=== PATIENT | male | born 1965 | race Caucasian/White ===

== ENCOUNTER 2022-01-25 07:40 | Outpatient (CLI) | payer OTHER, SELFPAY ==
[2022-01-25 11:18] LABS: Creatinine Urine 173.6 mg/dL
[2022-01-25 11:22] LABS: Microalbumin Creatinine Ratio 20 mg/g (0-30); Microalbumin Urine 4 mg/dL
[2022-01-25 11:33] LABS: Albumin* 4.7 g/dL (3.3-5.0); Chloride* 103 mmol/L (96-114); Sodium* 140 mmol/L (135-149)
[2022-01-25 11:34] LABS: Potassium* 4.6 mmol/L (3.6-5.1)
[2022-01-25 11:36] LABS: Alanine Aminotransferase* 13 U/L (4-50); Alkaline Phosphatase* 63 U/L (40-150); Aspartate Amino Transferase* 20 U/L (12-35); Bilirubin Total* 0.5 mg/dL (0.1-1.5); Blood Urea Nitrogen* 17 mg/dL (7-30); Calcium* 9.8 mg/dL (8.4-10.6); Carbon Dioxide* 28 mmol/L (20-32); Cholesterol* 169 mg/dL (90-199); Creatinine* 0.8 mg/dL (0.5-1.5); Estimated Glomerular Filt Rate 104 ml/min; Glucose* 136 mg/dL (60-115); Total Protein* 7.1 g/dL (6.0-8.3); Triglycerides* 138 mg/dL (40-149)
[2022-01-25 11:37] LABS: HDL Cholesterol* 38 mg/dL (>=40); LDL Cholesterol Calculated 103 mg/dL (<100)
== END 2022-01-25 07:41 | disposition home or self-care (01) ==
PROVIDERS: PCP Family Medicine; Visit Provider Family Medicine
DX: E11.9 Type 2 diabetes mellitus without complications (principal); E78.5 Hyperlipidemia, unspecified; E78.1 Pure hyperglyceridemia
CPT/HCPCS: 80053; 80061; 82043; 82570

== ENCOUNTER 2022-04-23 07:30 | Outpatient (CLI) | payer OTHER, SELFPAY ==
[2022-04-23 10:14] LABS: Albumin* 4.5 g/dL (3.3-5.0); Chloride* 102 mmol/L (96-114)
[2022-04-23 10:15] LABS: Potassium* 4.3 mmol/L (3.6-5.1); Sodium* 141 mmol/L (135-149)
[2022-04-23 10:17] LABS: Alkaline Phosphatase* 54 U/L (40-150); Aspartate Amino Transferase* 21 U/L (12-35); Bilirubin Total* 0.7 mg/dL (0.1-1.5); Blood Urea Nitrogen* 23 mg/dL (7-30); Carbon Dioxide* 30 mmol/L (20-32); Cholesterol* 130 mg/dL (90-199); Creatinine* 0.8 mg/dL (0.5-1.5); Estimated Glomerular Filt Rate 104 ml/min; Total Protein* 7.2 g/dL (6.0-8.3)
[2022-04-23 10:18] LABS: Alanine Aminotransferase* 15 U/L (4-50); Calcium* 9.8 mg/dL (8.4-10.6); Glucose* 136 mg/dL (60-115); HDL Cholesterol* 34 mg/dL (>=40); LDL Cholesterol Calculated 74 mg/dL (<100); Triglycerides* 111 mg/dL (40-149)
== END 2022-04-23 07:31 | disposition home or self-care (01) ==
LOC: NFLDREF 07:31
PROVIDERS: PCP Family Medicine; Visit Provider Family Medicine
DX: E11.9 Type 2 diabetes mellitus without complications (principal); E78.5 Hyperlipidemia, unspecified; I10 Essential (primary) hypertension
CPT/HCPCS: 80053; 80061

== ENCOUNTER 2023-06-06 07:52 | Outpatient (CLI) | payer OTHER, SELFPAY ==
--- OUTSIDE RECORDS SUMMARY | 2023-06-06 07:55 | XMS_ITS | Clinical Summary ---
Author Name Unknown Organization [facility] Address [place], [place] [address] Care Team Providers Care Medical Associate Name Role Phone German Love MD Primary Care Provider Allergies No known active allergies Medications Medication Sig Dispensed Refills Start Date End Date Status PROTONIX 40 MG TAB take 1 tablet (40mg) by oral route once daily Active multivitamin (MVI) tablet Take 1 tablet by mouth once daily. 0 04/26/2011 Active atenolol (TENORMIN) 25 mg tablet 3 03/25/2015 Active Active Problems Problem Noted Date Diagnosed Date Unspecified sleep apnea Unspecified essential hypertension Pure hyperglyceridemia GASTROESOPHAGEAL REFLUX PAROXYSMAL ATRIAL FIBRILLATION TACHYCARDIA (REGULAR) Overview: -05/30/06 S/P 1. EPS including Isoproterenol provocation up to 4 mcg. 2. Mapping & ablation of the posterior input to the AV junction. (Dr Bradford) Social History Tobacco Use Types Packs/Day Years Used Date Smoking Tobacco: Never Smokeless Tobacco: Never Tobacco Cessation:Counseling Given: Yes Alcohol Use Standard Drinks/Week Comments Not Asked 0 (1 standard drink = 0.6 oz pur e alcohol) 1/month Sex and Gender Information Value Date Recorded Sex Assigned at Not on file Gender Identity Not on file Sexual Orientation Not on file Obstetrics History Last Filed Vital Signs Vital Sign Reading Time Taken Comments Blood Pressure 128/78 05/15/2015 8:38 AM CDT Pulse 64 05/15/2015 8:38 AM CDT Temperature 36.7 ??C (98 ??F) 05/15/2015 8:38 AM CDT Respiratory Rate 18 05/31/2006 7:52 AM CDT Oxygen Saturation 100% 05/15/2015 8:38 AM CDT Inhaled Oxygen Concentration - - Weight 96.5 kg (212 lb 12.8 oz) 05/15/2015 8:38 AM CDT Height 177.8 cm (5' 10) 05/15/2015 8:38 AM CDT Body Mass Index 30.53 05/15/2015 8:38 AM CDT Plan of Treatment Health Maintenance Due Date Last Done Comments Tdap 1976 Depression screening for age 12+ 1977 HIV for age 15-65 1980 Hepatitis C screening for ag e 18-79 05/26/1983 Tetanus booster 1985 Colonoscopy through age 75 2010 Lipids for age 45-75 2010 Zoster (shingles) series for age 50+ (1 of 2) 05/26/2015 BMI (ht and wt on same day) for age 18+ 05/14/2016 05/15/2015 COVID-19 vaccine series (2022-24 season) 2022 Influenza for age 50-64 10/30/2023 Pneumococcal series for age 6-64 Aged Out No longer eligible based on patient's age to complete this topic Advance Directives * Full Code (Latest Code Status on File) Date Activated Date Inactivated Comments 05/30/2006 6:08 AM 05/31/2006 11:21 AM Care Teams Medical Associate Relationship Specialty Start Date End Date German Love MD PCP - General 10/03/07
--- NOTE | 2023-06-06 09:42 | W.ANESCHARGE ---
Anesthesia Charges Start Date/Time Anesthesia Start Date: 06/06/23 Anesthesia Start Time: 09:00 Stop Date/Time Anesthesia Stop Date: 06/06/23 Anesthesia Stop Time: 10:54
--- NOTE | 2023-06-06 10:56 | W.ANESCHARGE ---
Anesthesia Charges Start Date/Time Anesthesia Start Date: 06/06/23 Anesthesia Start Time: 09:00 Stop Date/Time Anesthesia Stop Date: 06/06/23 Anesthesia Stop Time: 10:54
== END 2023-06-06 07:53 | disposition home or self-care (01) ==
LOC: OP CLINIC 07:53
PROVIDERS: PCP Family Medicine; Visit Provider Surgery
DX: Z12.11 Encounter for screening for malignant neoplasm of colon (principal); K63.5 Polyp of colon; Z62 Problems related to upbringing; Z80.0 Family history of malignant neoplasm of digestive organs
CPT/HCPCS: 00811; 45385; 88305; J2704

== ENCOUNTER 2024-01-09 06:54 | Outpatient (CLI) | payer OTHER, SELFPAY ==
--- OUTSIDE RECORDS SUMMARY | 2024-01-09 06:58 | XMS_ITS | Clinical Summary ---
Author Organization [email or web address] Address [place], [place] [address] Care Team Providers Care Feather Mixer Name Role Phone German Love MD Primary Care Provider [phone] Allergies No known active allergies Medications Medication [...] GASTROESOPHAGEAL REFLUX PAROXYSMAL ATRIAL FIBRILLATION TACHYCARDIA (REGULAR) Overview (09/20/2006): -05/30/06 S/P 1. EPS including Isoproterenol provocation [...] age 18+ 05/14/2016 05/15/2015 COVID-19 vaccine series ( season) 2023 05/02/2023 Influenza for age 50-64 10/30/2023 Pneumococcal series for age 6-64 Aged Out No longer eligible based on patient's age to complete this topic Advance Directives * Full Code (Latest Code Status on File) Date Activated Date Inactivated Comments 05/30/2006 6:08 AM 05/31/2006 11:21 AM Care Teams Feather Mixer Relationship Specialty Start Date End Date German Love MD [facility] - General 10/03/07
--- NOTE | 2024-01-09 08:29 | W.ANESCHARGE ---
Anesthesia Charges Start Date/Time Anesthesia Start Date: 01/09/24 Anesthesia Start Time: 08:04 Stop Date/Time Anesthesia Stop Date: 01/09/24 Anesthesia Stop Time: 09:13
--- NOTE | 2024-01-09 09:14 | W.ANESCHARGE ---
Anesthesia Charges Start Date/Time Anesthesia Start Date: 01/09/24 Anesthesia Start Time: 08:04 Stop Date/Time Anesthesia Stop Date: 01/09/24 Anesthesia Stop Time: 09:13
== END 2024-01-09 06:55 | disposition home or self-care (01) ==
LOC: OP CLINIC 06:56
PROVIDERS: PCP Family Medicine; Visit Provider Surgery
DX: D12.0 Benign neoplasm of cecum (principal); D12.3 Benign neoplasm of transverse colon; D12.5 Benign neoplasm of sigmoid colon; D12.8 Benign neoplasm of rectum; Z86.0100 Personal history of colon polyps, unspecified
CPT/HCPCS: 00811; 45385; 88305; J2704

== ENCOUNTER 2024-06-04 07:35 | Outpatient (CLI) | payer BC, SELFPAY | END 2024-06-04 07:36 | disposition home or self-care (01) | LOC: NFLDREF 06-07 20:37 | PROVIDERS: PCP Family Medicine; Referring Provider Family Medicine; Visit Provider Family Medicine | DX: E78.5 Hyperlipidemia, unspecified (principal); E11.9 Type 2 diabetes mellitus without complications; I10 Essential (primary) hypertension; E66.9 Obesity, unspecified; R19.7 Diarrhea, unspecified; R73.09 Other abnormal glucose; Z12.5 Encounter for screening for malignant neoplasm of prostate | CPT/HCPCS: 80053; 80061; 82043; 82570; G0103 ==